=== PATIENT | male | born 1995 | race Caucasian/White ===

== ENCOUNTER 2023-11-17 01:30 | Emergency (ER) | payer MEDICAID ==
[~2023-11-17] VITALS: Ht 175.3 cm; Wt 136.0 kg
[2023-11-17 01:33] VITALS: O2SAT 97
[2023-11-17] MEDS ORDERED: MAGNESIUM/ALUMINUM HYDROXIDE/SIMETHICONE 30ML UDC PO STA (01:40)
[2023-11-17] MEDS ORDERED: SODIUM CHLORIDE 0.9% 1,000 ML IV ONE (01:45)
[2023-11-17] MEDS ORDERED: METOCLOPRAMIDE HCL 10MG/2ML VIAL IV ONE (01:45)
[2023-11-17 03:30] LABS: ALANINE AMINOTRANSFERASE 80 IU/L (10-49); ALBUMIN 4.3 g/dL (3.2-4.8); ASPARTATE AMINOTRANSFERASE 39 IU/L (<34); BASOPHILS % 0.6 % (0.0-2.0); BILIRUBIN TOTAL 0.4 mg/dL (0.1-1.0); CALCIUM 9.1 mg/dL (8.7-10.4); CARBON DIOXIDE 27 mEq/L (21-32); CHLORIDE 107 mEq/L (98-107); CREATININE 0.9 mg/dL (0.6-1.3); EOSINOPHILS % 1.4 % (0.0-5.0); GLUCOSE 126 mg/dL (70-105); HEMOGLOBIN. 15.6 g/dL (14.0-18.0); LYMPHOCYTES % 26.8 % (20.0-50.0); MEAN CORPUSCULAR HEMOGLOBIN 27.9 pg (28.0-32.0); MEAN PLATELET VOLUME 8.3 fl (7.4-10.4); MONOCYTES % 8.9 % (2.0-8.0); NEUTROPHILS % 62.3 % (40.0-76.0); PLATELET 326 x1000/uL (130-400); POTASSIUM 3.8 mEq/L (3.5-5.1); PROTEIN TOTAL 8.1 g/dL (6.0-8.3); RED BLOOD CELL COUNT 5.61 mill/uL (4.7-6.1); RED CELL DISTRIBUTION WIDTH 14.8 % (11.6-14.6); SODIUM 140 mEq/L (136-145); UREA NITROGEN BLOOD 9 mg/dL (9-23)
[2023-11-17 04:14] LABS: ETHANOL BLOOD < 10 mg/dL (<10)
[2023-11-17 04:31] LABS: PROTHROMBIN TIME 11.2 sec (9.6-11.0)
[2023-11-17] MEDS ORDERED: MAG355OR21 MT (06:20)
[2023-11-17] MEDS ORDERED: METO-293 MT (06:20)
[2023-11-17 06:27] VITALS: BP 125/80; PULSE 74; RESP 14; TEMP 98.2
== END 2023-11-17 06:29 | disposition home or self-care (01) ==
LOC: ER 01:30
DX: R11.2 Nausea with vomiting, unspecified (principal); R00.2 Palpitations
CPT/HCPCS: 80053; 80320; 83605; 83690; 85025; 85610; 36415; 71045; 76705; 99284; J7030; G0480